=== PATIENT | male | born 1950 | race Caucasian/White ===

== ENCOUNTER → 2020-05-05 | Outpatient (CLI) | payer MEDICARE, OTHER ==
[~2020-05-05] MED LIST: ASPIRIN EC81 MG PO; CITALOPRAM HBR20 MG PO; COMPAZINE 10MG10 MG PO; COREG6.25 MG PO; DOXYCYCLINE HY100 M2 PO; FLOMAX 0.4 MG0.4 MG PO; GABAPENTIN100 MG PO; HEPARIN SO5000 UNIT2 IV; ISOSORBIDE MONO60 MG PO; PLAVIX 75 MG TA75 MG PO; PROSCAR 5 MG TAB5 MG PO; PROTONIX 40 MG40 M1 PO; REPATHA SQ; SEROQUEL25 MG PO; TRAMADOL HCL50 MG PO; XANAX1 MG PO; ZESTRIL/PRINIVI10 MG PO; [UNRECOGNIZED DRUG - OTHER] PO
== END ==
LOC: HEART 5 04-27 08:45
DX: R06.02 Shortness of breath (principal); R94.39 Abnormal result of other cardiovascular function study
CPT/HCPCS: 78452; A9502; J2785

== ENCOUNTER → 2020-07-14 | Outpatient (CLI) | payer MEDICARE, OTHER | LOC: CT 10:11 | DX: I71.2 Thoracic aortic aneurysm, without rupture (principal); I73.9 Peripheral vascular disease, unspecified; I74.9 Embolism and thrombosis of unspecified artery; I10 Essential (primary) hypertension; I70.91 Generalized atherosclerosis; C85.80 Other specified types of non-Hodgkin lymphoma, unspecified site; E78.00 Pure hypercholesterolemia, unspecified; M79.89 Other specified soft tissue disorders; Z72.0 Tobacco use; I71.4 Abdominal aortic aneurysm, without rupture | CPT/HCPCS: 36415; 71275; 82565; 84520; Q9965 ==

== ENCOUNTER → 2020-08-26 | Outpatient (CLI) | payer MEDICARE, OTHER | LOC: MRI 08-24 09:00 | DX: M54.16 Radiculopathy, lumbar region (principal); M48.07 Spinal stenosis, lumbosacral region; M48.061 Spinal stenosis, lumbar region without neurogenic claudication | CPT/HCPCS: 72148 ==

== ENCOUNTER → 2021-07-22 | Outpatient (CLI) | payer MEDICARE, OTHER | LOC: OPSV 10:18 → CT 11:00 | DX: C84.A0 Cutaneous T-cell lymphoma, unspecified, unspecified site (principal) | CPT/HCPCS: 70491; 71260; 96360; 96361; J7030 ==